=== PATIENT | female | born 1970 | race American Indian/Alaskan Native ===

== ENCOUNTER 2020-05-23 06:21 | Emergency (ER) | payer SELFPAY ==
[2020-05-23 07:56] VITALS: BP 133/79
--- NOTE | 2020-05-23 08:13 | Emergency Department Report ---
ED ENT HPI - General Chief complaint: Dental/Oral Stated complaint: MOUTH BLEEDING; HEART PT Time Seen by Provider: 05/23/20 08:01 Source: family Mode of arrival: Ambulatory Limitations: No Limitations - History of Present Illness Initial comments: This is a 49-year-old female who presents to the ED today complaining of right lower to pain and bleeding x2 days patient states 2 days ago she started noticing some bleeding to her gums. Patient states that pain and bleeding is worse when she touches tooth. Patient states that she noted that the tooth has been loose. Patient does note that she takes Coumadin due to history of her heart valve placement many years ago. Patient states she was just seen by her primary care/heart doctor on Sunday with her Coumadin dose was reduced based on her INR levels. Patient notes that she follows up with her doctor regularly. Patient denies any bleeding elsewhere, she denies chest pain, shortness of breath, dizziness, blurry vision or any other symptoms. MD complaint: tooth pain - Related Data Previous Rx's Medication Instructions Recorded Last Taken Type Acetaminophen/Codeine [Tylenol 1 tab PO Q6H #10 tab 05/23/20 Unknown Rx /Codeine # 3 tab] Clindamycin [Clindamycin CAP] 300 mg PO Q8H #21 cap 05/23/20 Unknown Rx Allergies Allergy/AdvReac Type Severity Reaction Status Date / Time No Known Allergies Allergy Unverified 05/23/20 06:38 ED Dental HPI - General Chief complaint: Dental/Oral Stated complaint: MOUTH BLEEDING; HEART PT Time Seen by Provider: 05/23/20 08:01 Source: family Mode of arrival: Ambulatory Limitations: No Limitations - Related Data Previous Rx's Medication Instructions Recorded Last Taken Type Acetaminophen/Codeine [Tylenol 1 tab PO Q6H #10 tab 05/23/20 Unknown Rx /Codeine # 3 tab] Clindamycin [Clindamycin CAP] 300 mg PO Q8H #21 cap 05/23/20 Unknown Rx Allergies Allergy/AdvReac Type Severity Reaction Status Date / Time No Known Allergies Allergy Unverified 05/23/20 06:38 ED Review of Systems ROS: Stated complaint: MOUTH BLEEDING; HEART PT Other details as noted in HPI Comment: All other systems reviewed and negative ED Past Medical Hx - Past Medical History Previous Medical History?: Yes Hx of Cancer: Yes (Left mass) Additional medical history: MV replacement - Surgical History Past Surgical History?: Yes Additional Surgical History: Mass on left kidney, MV replacement - Medications Home Medications: Home Medications Medication Instructions Recorded Confirmed Last Taken Type Acetaminophen/Codeine [Tylenol 1 tab PO Q6H #10 tab 05/23/20 Unknown Rx /Codeine # 3 tab] Clindamycin [Clindamycin CAP] 300 mg PO Q8H #21 cap 05/23/20 Unknown Rx ED Physical Exam - General Limitations: No Limitations General appearance: alert, in no apparent distress - Head Head exam: Present: atraumatic, normocephalic - Eye Eye exam: Present: normal appearance, PERRL Pupils: Present: normal accommodation - ENT ENT exam: Present: mucous membranes moist - Expanded ENT Exam Expanded Teeth exam: Present: normal inspection, dental caries, gingival enlargement, other (Gingival tenderness.) 1 - Dental Tenderness, Other (Loose, gingival erythema, minimal swelling noted, no bleeding) - Neck Neck exam: Present: normal inspection, full ROM - Respiratory Respiratory exam: Present: normal lung sounds bilaterally. Absent: respiratory distress, chest wall tenderness, accessory muscle use - Cardiovascular Cardiovascular Exam: Present: regular rate, normal rhythm, normal heart sounds. Absent: systolic murmur, diastolic murmur, rubs, gallop - GI/Abdominal GI/Abdominal exam: Present: soft, normal bowel sounds. Absent: distended - Extremities Exam Extremities exam: Present: normal inspection - Back Exam Back exam: Present: normal inspection - Neurological Exam Neurological exam: Present: alert, oriented X3 - Psychiatric Psychiatric exam: Present: normal affect, normal mood - Skin Skin exam: Present: warm, dry, intact, normal color. Absent: rash ED Course Vital Signs 05/23/20 07:55 Temperature 98 F Pulse Rate 99 H Respiratory 20 Rate Blood Pressure 133/79 [Right] O2 Sat by Pulse 100 Oximetry ED Medical Decision Making - Medical Decision Making 49-year-old female who presents with right-sided dental infection ED course: Odontogenic infection versus ear infection. Based upon history and physical examination, pain is a result of an infection of tooth number 28 and that the pain from this infectious process is causing gingival bleed. Discussed with patient bleeding from the gum is due to small dental abscess/gingival infection. There was no bleeding during my examination. Gingival erythema at tooth #28. Pt has no evidence of acute impending airway compromise. At this point, patient will be discharged home on some antibiotics and pain trial, she will do well with an outpatient course of antibiotics. Follow up with the Dental Clinic as referred Vital signs are normal patient is in no acute distress. Pt had an effect uneventful ED stay Critical care attestation.: If time is entered above; I have spent that time in minutes in the direct care of this critically ill patient, excluding procedure time. ED Disposition Clinical Impression: Gingival bleeding, Pain, dental, Dental infection Disposition: TO HOME OR SELFCARE Is pt being admited?: No Does the pt Need Aspirin: No Condition: Stable Instructions: Dental Abscess, Preventive Dental Care, Adult Additional Instructions: Make sure to follow up with the primary care physician as discussed. Take all your medications as you've been prescribed. If you have any worsening symptoms or develop new symptoms please return to ED immediately. Prescriptions: Clindamycin [Clindamycin CAP] 300 mg PO Q8H #21 cap Acetaminophen/Codeine [Tylenol /Codeine # 3 tab] 1 tab PO Q6H #10 tab Referrals: [facility] [Outside] - 3-5 Days [facility] [Outside] - 3-5 Days Forms: Work/School Release Form(ED) Time of Disposition: 08:19
== END 2020-05-23 08:30 | disposition home or self-care (01) ==
LOC: ED 06:21
DX: K06.8 Other specified disorders of gingiva and edentulous alveolar ridge (principal); K08.89 Other specified disorders of teeth and supporting structures; K04.7 Periapical abscess without sinus; Z79.899 Other long term (current) drug therapy; Z98.890 Other specified postprocedural states
CPT/HCPCS: 99281